=== PATIENT | male | born 1995 | race Two or more races ===

== ENCOUNTER 2024-10-28 22:12 | Emergency (ER) | payer MEDICAID, OTHER ==
[~2024-10-28] VITALS: Ht 165.1 cm; Wt 96.6 kg
--- NOTE | 2024-10-28 23:45 | DVH ---
CLINICAL INFORMATION: 29 years old, Male; 3RD DIGIT INJURY. TECHNIQUE: 3 views of the hand were obtained. COMPARISON: None FINDINGS: No acute fracture or dislocation. No significant arthropathy. Adjacent soft tissues are unr emarkable. IMPRESSION: 1. No evidence of acute bony abnormality.
[2024-10-28 23:57] VITALS: BP 148/105; PULSE 98; RESP 16; TEMP 98.6; O2SAT 98
[2024-10-29] MEDS: LIDOCAINE 1% HCL (LOCAL ANESTH.) INJ 20ML MDV ID ONE (00:44)
--- NOTE | 2024-10-29 03:17 | ED.PDOC ---
HPI Comments Patient presents to the ED for evaluation of laceration to the left 3rd digit. Patient states, he injured his finger while sorting rocks. +bruising noted, laceration noted on both side of his left finger. CSM intact. Chief Complaint: Laceration Time Seen by MD: 22:24 Reviewed Notes: Nurses Notes, Medications, Allergies Information Source: Patient Mode of Arrival: Ambulatory Complexity: Simple Laceration Length (cm): 0 Past Medical History PAST MEDICAL HISTORY: Denies Surgical History: Denies all surgeries Family History Family History: Reviewed,noncontributory to illness Constitutional: denies: chills, diaphoresis, fatigue, fever, malaise, sweats, weakness, others EENTM: denies: blurred vision, double vision, ear bleeding, ear discharge, ear drainage, ear pain, ear ringing, eye pain, eye redness, hearing loss, mouth pain, mouth swelling, nasal discharge, nose bleeding, nose congestion, nose pain, photophobia, tearing, throat pain, throat swelling, voice changes, others Respiratory: denies: cough, hemoptysis, orthopnea, SOB at rest, shortness of breath, SOB with excertion, stridor, wheezing, others Cardiovascular: denies: chest pain, dizzy spells, diaphoresis, Dyspnea on exertion, edema, irregular heart beat, left arm pain, lightheadedness, palpitations, PND, syncope, others Gastrointestinal: denies: abdomen distended, abdominal pain, blood streaked bowels, constipated, diarrhea, dysphagia, difficulty swallowing, hematemesis, melena, nausea, poor appetite, poor fluid intake, rectal bleeding, rectal pain, vomiting, others Genitourinary: denies: burning, dysuria, flank pain, frequency, hematuria, incontinence, penile discharge, penile sore, pain, testicle pain, testicle swelling, urgency, others Neurological: denies: dizziness, fainting, headache, left sided numbness, left sided weakness, numbness, paresthesia, pre-existing deficit, right sided nu mbness, right sided weakness, seizure, speech problems, tingling, tremors, weakness, others Musculoskeletal: denies: back pain, gout, joint pain, joint swelling, muscle pain, muscle stiffness, neck pain, others Integumetry: reports: laceration (left 3rd digit ); denies: bruises, change in color, change in hair/nails, dryness, lesions, lumps, rash, wounds, others Allergic/Immunocompromised: denies: Difficulty Healing, Frequent Infections, Hives, Itching, others Hematologic/Lymphatic: denies: anemia, blood clots, easy bleeding, easy bruising, swollen glands, others Endocrine: denies: excessive hunger, excessive sweating, excessive thirst, excessive urination, flushing, intolerance to cold, intolerance to heat, unexplained weight gain, unexplained weight loss, others Psychiatric: denies: anxiety, bipolar disorder, depression, hopeless, panic disorder, schizophrenia, sleepless, suicidal, others Physical Exam General Appearance: No Apparent Distress, Normal HEENT: Pharynx Normal Neck: Full Range of Motion, Non-Tender Respiratory: Lungs Clear, No Respiratory Distress, Normal Breath Sounds Cardiovascular: No Edema, No JVD, No Murmur, No Gallop, Normal Peripheral Pulses, Regular Rate/Rhythm Breast Exam: Deferred Gastrointestinal: Non Tender, Soft Genitalia: Deferred Pelvic: Deferred Rectal: Deferred Extremities: Normal capillary refill, Normal inspection, Normal range of motion, Non-tender, No pedal edema Musculoskeletal : Apperance: Normal 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 Strength sensory and motion intact no obvious foreign body bleeding controlled), Normal Color, Warm Lymphatic: No Adenopathy Was a procedure done? Was a procedure done?: Yes Sedation Sedation?: No Informed consent obtained: Yes Laceration Repair : Location Left hand distal anterior aspect of 3rd digit Length 0.5 Anesthetic: Lidocaine, Without epi, Digital nerve block Laceration Repair Prep: Saline, Betadine Laceration Repair Wound Comple: epidermis/dermis repair Laceration Repair: Number of sutures (3), Simple Informed consent obtained: Yes Risks, benefits, and alternati: Yes Differential diagnosis Generic Laceration: Hematoma, Fracture, Retained Foriegn Body, Neurovascular Injury, Laceration, Avulsion X-Ray, Labs, Meds, VS Vital Signs Date Time Temp Pulse Resp B/P (MAP) Pulse Ox O2 Delivery O2 Flow Rate FiO2 10/28/24 23:57 98.6 98 16 148/105 (119) 98 98.6 10/28/24 23:57 98 16 98 Room Air 10/28/24 22:24 98.6 98 16 148/105 (119) 98 98.6 Current Medications Medications (Trade) Dose Ordered Sig/Yvette Route Start Time Stop Time Status Last Admin Lidocaine HCl (Xylocaine 1%) 5 ml ONCE ONCE ID 10/29/24 00:15 10/29/24 00:42 DC 10/29/24 00:44 X-Ray, Labs, Meds, VS Comment Tdap up-to-date. See procedure note. Finger placed in frog splint and wrapped. Advised suture removal in 5-7 days. With her PCP back here in the ER urgent care for wound re-evaluation in 48 hours. [id number] Tylenol or Motrin as needed for the pain per labeled dosing instructions. ER return precautions given patient indicates understanding agrees with discharge plan of care. Time of 1ST Reevaluation: 03:10 Reevaluation 1ST: Improved Patient Education/Counseling: Diagnosis, Treatment, Prognosis, Need For Follow Up Family Education/Counseling: Diagnosis, Treatment, Prognosis, Need For Follow Up Departure 1 Departure Time of Disposition: 03:16 Impression: Primary Impression: Laceration of finger of left hand without damage to nail Qualified Codes: S61.211A - Laceration without foreign body of left index finger without damage to nail, initial encounter Disposition: 01 HOME / SELF CARE / HOMELESS Condition: Stable Discharged With: Friend Critical Care Note Critical Care Time?: No Stability Stability form required: CATALINO Harper Oct 29, 2024 03:17
== END 2024-10-29 03:20 | disposition home or self-care (01) ==
LOC: ER 22:12
DX: S61.215A Laceration without foreign body of left ring finger without damage to nail, initial encounter (principal); X58.XXXA Exposure to other specified factors, initial encounter; Y93.89 Activity, other specified; Y92.89 Other specified places as the place of occurrence of the external cause; Y99.8 Other external cause status
CPT/HCPCS: 12001; 73130; 99283; J2003

== ENCOUNTER → 2025-04-19 | Emergency (ER) | payer MEDICAID ==
[~2025-04-19] VITALS: Ht 154.9 cm; Wt 91.0 kg
[2025-04-19 14:14] VITALS: BP 175/101; PULSE 76; RESP 16; TEMP 98.5; O2SAT 99
== END | disposition left against medical advice (07) ==
LOC: ER 14:08
DX: H57.89 Other specified disorders of eye and adnexa (principal); Z53.21 Procedure and treatment not carried out due to patient leaving prior to being seen by health care provider